=== PATIENT | male | born 1950 | race Caucasian/White ===

== ENCOUNTER → 2016-10-17 | Outpatient (CLI) | payer MEDICARE ==
[~2016-10-17] MED LIST: CRES10 PO; INSU100V18 SC; LISI2.5T59 PO; METF500T4 PO; PARO10TA76 PO; TEMA15CA PO
[2016-10-17 13:15] LABS: BASOPHILS % 0.2 % (0.0-2.0); EOSINOPHILS # 0.1 10^3/ul (0.0-0.5); EOSINOPHILS % 1.5 % (0.0-7.0); HEMATOCRIT 40.9 % (42.0-52.0); HEMOGLOBIN 12.9 g/dl (14.0-18.0); LYMPHOCYTES # 2.2 10^3/ul (0.8-2.9); LYMPHOCYTES % 23.9 % (15.0-51.0); MEAN CORPUSCULAR HEMOGLOBIN 25.6 pg (29.0-33.0); MEAN CORPUSCULAR HGB CONC 31.5 g/dl (32.0-37.0); MEAN CORPUSCULAR VOLUME 81.2 fl (82.0-101.0); MEAN PLATELET VOLUME 9.4 fl (7.4-10.4); MONOCYTE # 0.6 10^3/ul (0.3-0.9); MONOCYTES % 6.3 % (0.0-11.0); NEUTROPHIL # 6.1 10^3/ul (1.6-7.5); NEUTROPHILS % 67.5 % (39.0-77.0); PLATELET COUNT 313 10^3/UL (140-415); RED BLOOD COUNT 5.04 10^6/ul (4.70-6.10); RED CELL DISTRIBUTION WIDTH 15.8 % (11.5-14.5); WHITE BLOOD COUNT 9.1 10^3/ul (4.8-10.8)
[2016-10-17 13:24] LABS: ADD UMIC YES; UR ASCORBIC ACID 20 mg/dL (NEGATIVE); UR BILIRUBIN (Dip) NEGATIVE (NEGATIVE); UR BLOOD (Dip) NEGATIVE (NEGATIVE); UR CLARITY CLOUDY (CLEAR); UR COLOR AMBER (YELLOW); UR GLUCOSE (Dip) 1+ mg/dL (NEGATIVE); UR KETONES (Dip) NEGATIVE (NEGATIVE); UR LEUKOCYTE ESTERASE (Dip) NEGATIVE Leu/ul (NEGATIVE); UR NITRITE (Dip) NEGATIVE (NEGATIVE); UR RBC 5 /HPF (0-5); UR SPECIFIC GRAVITY (Dip) 1.013 (1.003-1.030); UR TOTAL PROTEIN (Dip) NEGATIVE (NEGATIVE); UR UROBILINOGEN (Dip) NEGATIVE (NEGATIVE)
[2016-10-17 13:43] LABS: INR 0.99; PROTIME 13.1 Sec (12.2-14.2)
[2016-10-17 13:44] LABS: PARTIAL THROMBOPLASTIN TIME 45.1 Sec (25.0-35.0)
[2016-10-17 13:48] LABS: ALBUMIN 4.5 g/dl (3.3-4.9); ALBUMIN/GLOBULIN RATIO 1.07; BILIRUBIN,INDIRECT 0.3 mg/dl (0-1.1); BILIRUBIN,TOTAL 0.3 mg/dl (0.2-1.3); CALCIUM 9.9 mg/dl (8.4-10.2); CREATININE 1.06 mg/dl (0.61-1.24); POTASSIUM 4.9 mmol/L (3.5-5.1); TOTAL PROTEIN 8.7 g/dl (6.1-8.1)
--- NOTE | 2016-10-17 16:11 | RADRPT ---
PROCEDURE: XR Chest. CLINICAL INDICATION: Cough. Bronchitis. TECHNIQUE: Two views. Frontal and lateral. COMPARISON: No prior study is available for comparison. FINDINGS: The lungs are clear. The heart size is normal. There is no pleural effusion. There is no pneumothorax. IMPRESSION: 1. Normal chest radiograph. RPTAT: QQ .Efrain Arriaga MD, MD Date Time Electronically viewed and signed by .Efrain Arriaga MD, on 10/17/2016 16:11 .R/
--- NOTE | 2016-10-19 11:19 | RADRPT ---
Vent Rate: 68 bpm RR Interval: 0 msec [place] Interval: 222 msec QRS Duration: 90 msec QT Interval: 388 msec QTC Interval: 412 msec P-R-T [place]: 54 - 36 - 52 degrees Sinus rhythm with 1st degree AV block Otherwise normal ECG Electronically Signed By: Pradeep Davis [id number]
--- NOTE | 2016-10-22 17:06 | HP ---
DATE OF ADMISSION: 10/17/2016 HISTORY OF PRESENT ILLNESS: The patient a is a 65-year-old gentleman who is being admitted on an elective basis for treatment of right thumb trigger finger by Dr. Irvin on October 25. The patient has a long history of diabetes mellitus, for the past 15 years. He is being followed by PMD. He takes Humalog, exact dose is not clear with meals. His other medications include metformin 1000 mg p.o. b.i.d. and lisinopril 20 mg p.o. q. daily. REVIEW OF SYSTEMS: HEAD: No history of headache, focal weakness or numbness. EYES: History of right eye retinopathy, status post cataract surgery. 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 ENT: No sinusitis, tonsillitis, or hearing loss. NECK: No history of neck pain or thyroid disease. CHEST: No cough, wheezing, or asthma. The patient does not smoke. HEART: No chest pain, palpitations, or shortness of breath. History of hyperlipidemia. GASTROINTESTINAL: The patient has had dysphagia for both solids and liquids for the past 6 months. Due for endoscopy at [facility]. GENITOURINARY: No dysuria, hematuria, or kidney stones. Status post surgery for benign prostatic hypertrophy. FAMILY HISTORY: Noncontributory. PHYSICAL EXAMINATION: GENERAL APPEARANCE: The patient is an average built male, who is presently in no acute distress. VITAL SIGNS: Blood pressure 136/90, respiratory 20 per minute, afebrile. HEENT: Head normocephalic. No pallor, cyanosis, or icterus. Tongue is moist. NECK: Supple. No thyromegaly, bruits, or lymphadenopathy. CHEST: Clinically clear. HEART: S1, S2 heard with no definite gallops. ABDOMEN: Soft, nontender. No hepatosplenomegaly. EXTREMITIES: No edema. Dorsalis pedis pulsations 2 plus bilaterally. David's sign is negative. NEUROLOGIC: No localizing or lateralizing signs. LABORATORY: WBC count 9.1, hematocrit 40.9, platelet count is 313,000. PT/INR 0.99. Sodium 145, potassium 4.9, BUN 17, and creatinine 1.06. Urinalysis 1 plus glucose, leukocyte esterase negative, and nitrites negative. Chest x-ray shows normal lung vazquez. Heart size formal. EKG shows normal sinus rhythm with no acute changes. IMPRESSION: 1. Right thumb trigger finger. 2. 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 3. Recent dysphagia, etiology undetermined. 4. Hypertension. 5. Hyperlipidemia. PLAN: The patient's overall medical condition is stable for the proposed surgery by Dr. Irvin. Thank you, again Dr. Irvin for asking me to evaluate Mr. Carpenter and I will be happy to follow him along with you. Dictated By: Jose Ace MD /nash/giselle /Document#: [id number]
== END | disposition home or self-care (01) ==
LOC: LAB 11:36
PROVIDERS: ATTEND Internal Medicine
DX: E11.9 Type 2 diabetes mellitus without complications (principal); M65.311 Trigger thumb, right thumb; R07.9 Chest pain, unspecified; J20.9 Acute bronchitis, unspecified
CPT/HCPCS: 71020; 80053; 81001; 85025; 85610; 85730; 93005

== ENCOUNTER 2016-10-24 05:44 | Day surgery (SDC) | payer MEDICARE, OTHER ==
[~2016-10-24] VITALS: Ht 170.2 cm; Wt 69.8 kg
[2016-10-24] VITALS (8 sets, daily range): BP systolic 119–169; BP diastolic 73–91; PULSE 56–67; RESP 11–28; Ht 170.2 cm; Wt 69.8 kg
[2016-10-24] MEDS ORDERED: PROPOFOL 200 MG INJ ONE (07:00)
[2016-10-24] MEDS ORDERED: NEOSTIGMINE 3 MG/3 ML SYRINGE ONE (07:33)
[2016-10-24] MEDS ORDERED: FENTAnyl 50 MCG/ML VIAL ONE (07:33)
[2016-10-24] MEDS ORDERED: MIDAZOLAM 1 MG/ML 2 ML INJ ONE (07:33)
--- NOTE | 2016-10-24 07:52 | HPN ---
Date/Time of Note Date/Time of Note DATE: 10/24/16 TIME: 07:51 Interval H&P Admission Note Pt. seen H&P reviewed: No system changes CIARAN GIMENEZ MD Oct 24, 2016 07:51
[2016-10-24] MEDS ORDERED: KETOROLAC 30 MG INJ ONE (08:03)
[2016-10-24] MEDS ORDERED: DEXAMETHASONE 4 MG/ML 1 ML INJ ONE (08:03)
[2016-10-24] MEDS ORDERED: ONDANSETRON 4 MG INJ ONE (08:03)
[2016-10-24] MEDS ORDERED: METOCLOPRAMIDE 10 MG INJ ONE (08:03)
[2016-10-24] MEDS ORDERED: PHENYLephrine (100 MCG/ML) 5ML SYG ONE (08:05)
[2016-10-24] MEDS ORDERED: CEFAZOLIN 1 GM INJ ONE (08:11)
[2016-10-24] MEDS ORDERED: BUPIVACAINE 0.5%/EPI (SDV) 10 ML INJ ONE (08:14)
[2016-10-24] MEDS ORDERED: morphine (1 MG/ML) 10ML SYRINGE IV PRN ×3 (08:30)
[2016-10-24] MEDS ORDERED: DIPHENHYDRAMINE 50 MG INJ IV PRN (08:30)
[2016-10-24] MEDS ORDERED: OXYCODONE/ACETAMINOPHEN (5/325) TAB PO PRN (08:30)
[2016-10-24] MEDS ORDERED: ONDANSETRON 4 MG INJ IV PRN (08:30)
[2016-10-24] MEDS ORDERED: LABETALOL HCL 20MG INJ IV PRN (08:30)
[2016-10-24] MEDS ORDERED: EPHEDrine SULFATE 50 MG/5 ML SYG IV PRN (08:30)
[2016-10-24] MEDS ORDERED: MEPERIDINE 25 MG INJ IV PRN (08:30)
[2016-10-24] MEDS ORDERED: hydrALAzine 20 MG INJ IV PRN (08:30)
[2016-10-24] MEDS ORDERED: FENTAnyl 50 MCG/ML VIAL IV PRN ×3 (08:30)
[2016-10-24] MEDS ORDERED: HYDROCODONE/APAP (5/325) TAB PO PRN (09:00)
[2016-10-24] MEDS ORDERED: morphine 2 MG INJ IV PRN (09:00)
--- NOTE | 2016-10-24 09:01 | OPR ---
Date/Time of Note Date/Time of Note DATE: 10/24/16 TIME: 08:55 Operative Report Preoperative Diagnosis trigger thumb,Rt. thumb Postoperative Diagnosis same as preop Operation/Procedure Performed release of trigger thumb Surgeon: CIARAN GIMENEZ MD Anesthesia Type: general Estimated Blood Loss: minimal Transfusion Required: no Specimen: none Grafts/Implants: none Complications: no Complications none CIARAN GIMENEZ MD Oct 24, 2016 08:59
--- NOTE | 2016-10-24 11:00 | OPR ---
DATE OF OPERATION: 10/24/2016 SURGEON: Nydia Irvin MD PREOPERATIVE DIAGNOSIS: Trigger thumb, right hand. POSTOPERATIVE DIAGNOSIS: Trigger thumb, right hand. OPERATION PERFORMED: Release of the trigger thumb, right hand. ANESTHESIA: General anesthesia. OPERATIVE PROCEDURE: Under anesthesia the patient was placed in supine position upon the operating table. A tourniquet was placed over the proximal portion of the right arm and was inflated up to 250 mmHg prior to the procedure. The usual prep and drape was done exposing the right hand. The flexor tendon casa, at the base of the right thumb, was approached through the transverse incision along the skin crease. By blunt and sharp dissection the flexor tendon casa was identified and this was opened longitudinally, and a small sliver of the flexor casa was removed thus releasing the flexor tendon. After confirming satisfactory motion of the tendon through the area without any restriction the procedure was terminated. After releasing the tourniquet and controlled the bleeding. Closure of the incision was carried out using #3-0 nylon in a interrupted simple suture. The usual sterile pressure dressings were applied. The patient tolerated the entire procedure very well and was sent to the Recovery room in excellent condition. Dictated By: In Keyla Irvin MD /nash/vik /Document#: [id number]
== END 2016-10-24 09:56 | disposition home or self-care (01) ==
LOC: SDS 05:44
PROVIDERS: ATTEND Internal Medicine
DX: M65.311 Trigger thumb, right thumb (principal); E11.9 Type 2 diabetes mellitus without complications
CPT/HCPCS: 26055; 82962; J0690; J1100; J1885; J2250; J2370; J2405; J2765; J3010; J2710